=== PATIENT | male | born 1960 | race Native Hawaiian/Other Pacific Islander ===

== ENCOUNTER → 2018-05-26 | Outpatient (CLI) | payer OTHER ==
[~2018-05-26] MED LIST: PROHANCE 279.3MG/ML 15ML VIAL (A9576) As Ordered ONE
--- NOTE | 2018-05-26 16:28 | REP ---
Clinical: Vertigo . Technique: Shaw scale and color Doppler evaluation using linear high frequency transducer Findings: Two-dimensional shaw scale and color images demonstrate mild mixed atheromatous plaquing through the common carotid arteries extending through the bulbs and proximal internal carotid arteries with normal laminar flow and no appreciable narrowing. Color Doppler interrogation demonstrates normal arterial wave patterns and velocities with no significant spectral broadening. Normal flow direction is appreciated in the bilateral vertebral arteries. RIGHT (cm/s) LEFT (cm/s) ICA peak systolic velocity 82.4 63.5 ICA diastolic velocity 19.0 25.7 ECA peak systolic velocity 88.8 135.0 CCA peak systolic velocity 104.0 95.3 ICA/CCA ratio 0.79 0.67 Impression: No hemodynamically significant areas of narrowing or stenosis appreciated. Based on set standards narrowing falls within the less than 50% range. Electronically Signed by Rogers Roper MD 05/26/2018 04:19 P
--- NOTE | 2018-05-27 08:50 | REP ---
MR BRAIN WITHOUT AND WITH CONTRAST: HISTORY: Vertigo. CONTRAST: ProHance 15 mL. Several punctate areas of increased signal intensity on T2-weighted images are present in the periventricular and subcortical white matter. This represents small vessel ischemic disease. There is no intraparenchymal hemorrhage, infarct, mass, or midline shift. 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 There is no abnormal enhancement. The ventricular system and cortical sulci are dilated consistent with minimal volume loss. There is no extracerebral collection. The sinuses are clear. IMPRESSION: 1. Minimal small vessel ischemic disease. 2. Minimal volume loss. Electronically Signed by Hector Robison MD 05/27/2018 08:59 A
== END ==
LOC: M RAD 15:39
PROVIDERS: ATTEND Family Medicine
DX: I67.82 Cerebral ischemia (principal); G31.9 Degenerative disease of nervous system, unspecified
CPT/HCPCS: 70553; 93880; A9576